=== PATIENT | male | born 1985 | race Caucasian/White ===

== ENCOUNTER 2017-03-25 05:56 | Emergency (ER) | payer MEDICAID ==
[2017-03-25 05:56] VITALS: BMI 30.4
[2017-03-25] MEDS ORDERED: Albuterol-Ipratrop 3 mg / 0.5 (3 ml) UD ONE ×2 (06:02→06:16)
[2017-03-25 06:06] VITALS: RESP 20; O2SAT 97
--- NOTE | 2017-03-25 06:10 | C.PDOC ---
History Of Present Illness pt presents with wheezing, worsening over a few days. speaking in complete sentences. no f/c/n/v Time Seen by Provider: 03/25/17 06:10 Chief Complaint (Nursing): Shortness Of Breath History Per: Patient History/Exam Limitations: no limitations Onset/Duration Of Symptoms: Days Current Symptoms Are (Timing): Still Present Initiating Event: Out Of Medications Exacerbating Factor(s): Coughing Current Respiratory Medications: See Home Med List Severity: Moderate Pain Scale Rating Of: 4 Associated Symptoms: denies: Fever, Chills, Sweating, Anxiety Reports Recently: Seen In ED, Treated By A Physician Recent travel outside of the [place]: No Additional History Per: Patient Past Medical History Reviewed: Historical Data, Nursing Documentation, Vital Signs Vital Signs: Last Vital Signs Temp 98 F 03/25/17 06:02 Pulse 94 H 03/25/17 06:02 Resp 20 03/25/17 06:02 BP 133/88 03/25/17 06:02 Pulse Ox 97 03/25/17 06:10 - Medical History PMH: Asthma Family History: States: No Known Family Hx - Social History Hx Alcohol Use: Yes Hx Substance Use: Yes Review Of Systems Constitutional: Negative for: Fever, Chills Eyes: Negative for: Redness ENT: Negative for: Throat Pain Cardiovascular: Negative for: Chest Pain Respiratory: Positive for: Shortness of Breath, Wheezing Gastrointestinal: Negative for: Nausea, Vomiting Genitourinary: Negative for: Hematuria Musculoskeletal: Negative for: Back Pain Skin: Negative for: Rash Neurological: Negative for: Weakness Psych: Negative for: Anxiety Physical Exam - Physical Exam Appears: Non-toxic, No Acute Distress Skin: Warm, Dry Head: Normacephalic Eye(s): bilateral: Normal Inspection Nose: No Flaring Oral Mucosa: Moist Neck: Supple Chest: Symmetrical Cardiovascular: Rhythm Regular Respiratory: No Accessory Muscle Use, No Rales, No Rhonchi, Wheezing Gastrointestinal/Abdominal: No Soft, No Tenderness, No Distention Back: No CVA Tenderness Male Genital: Normal Inspection Extremity: Bilateral: Atraumatic Neurological/Psych: Oriented x3, Normal Speech, Normal Cognition Gait: Steady ED Course And Treatment O2 Sat by Pulse Oximetry: 97 Pulse Ox Interpretation: Normal Medical Decision Making Medical Decision Making: Upon provider reevaluation patient is feeling better, is medically stable, and requires no further treatment in the ED at this time. Patient will be discharged home with Rx for albuterol, prednisone . Counseling was provided and all questions were answered regarding diagnosis and need for follow up with the referred clinic. There is agreement to discharge plan. Return if symptoms persist or worsen. Disposition Counseled Patient/Family Regarding: Studies Performed, Diagnosis, Need For Followup - Disposition Referrals: [facility] [Outside] [facility] [Outside] Disposition: HOME/ ROUTINE Disposition Time: 06:10 Condition: FAIR Additional Instructions: Please return if symptoms recur Prescriptions: Albuterol HFA [Ventolin HFA 90 mcg/actuation (8 g)] 2 puff IH [id number] #1 puff Albuterol 0.083% [Albuterol Sulfate 3 Ml] 3 ml IH QID PRN #50 neb PRN Reason: Wheezing Prednisone [Deltasone] 20 mg PO DAILY #5 tablet Instructions: Asthma (DC) - Clinical Impression Clinical Impression: Asthma exacerbation
[2017-03-25] MEDS ORDERED: Albuterol-Ipratrop 3 mg / 0.5 (3 ml) UD IH SCH (06:15)
[2017-03-25 06:32] VITALS: BP 129/78; PULSE 70; TEMP 97.2
== END 2017-03-25 06:25 | disposition home or self-care (01) ==
LOC: C.ER 05:56
DX: J45.901 Unspecified asthma with (acute) exacerbation (principal)

== ENCOUNTER 2017-03-30 23:58 | Emergency (ER) | payer MEDICAID ==
[2017-03-30 23:59] VITALS: BMI 30.4
--- NOTE | 2017-03-31 01:10 | C.PDOC ---
History Of Present Illness A 31 y/o M c/o pain to the right hand that punching something [employer]. Denies fever , chills, weakness, numbness, or any other complaints. Time Seen by Provider: 03/31/17 01:09 Chief Complaint (Nursing): Upper Extremity Problem/Injury History Per: Patient History/Exam Limitations: no limitations Onset/Duration Of Symptoms: Hrs Current Symptoms Are (Timing): Still Present Severity: Mild Recent travel outside of the [place]: No Additional History Per: Patient Past Medical History Reviewed: Historical Data, Nursing Documentation, Vital Signs Vital Signs: Last Vital Signs Temp 99.1 F 03/31/17 00:07 Pulse 142 H 03/31/17 00:07 Resp 20 03/31/17 00:07 BP 172/124 H 03/31/17 00:07 Pulse Ox 98 03/31/17 01:17 - Medical History PMH: Asthma Family History: States: Unknown Family Hx - Social History Hx Alcohol Use: Yes Hx Substance Use: No Review Of Systems Except As Marked, All Systems Reviewed And Found Negative. Constitutional: Negative for: Fever, Chills Musculoskeletal: Positive for: Hand Pain (Right hand pain) Neurological: Negative for: Weakness, Numbness Physical Exam - Physical Exam Appears: Non-toxic, No Acute Distress Skin: Warm, Dry Head: Atraumatic, Normacephalic Extremity: Normal ROM, Tenderness (Tenderness and bruising to the 5th metacarpal fo the right hand), Capillary Refill (<2secs) Extremity: Bilateral: Normal Color And Temperature Pulses: Left Radial: Normal, Right Radial: Normal Neurological/Psych: Oriented x3, Normal Speech, Normal Cognition, Normal Motor, Normal Sensation ED Course And Treatment O2 Sat by Pulse Oximetry: 98 (RA) Pulse Ox Interpretation: Normal Medical Decision Making Medical Decision Making: Impression: A 31 y/o M c/o pain to the right hand that punching something. Plans: -XRAY right hand Disposition - Disposition Disposition: AGAINST MEDICAL ADVICE Disposition Time: 01:15 Condition: STABLE - Clinical Impression Clinical Impression: Right hand pain - Scribe Statement The provider has reviewed the documentation as recorded by the Scribe Jonathan chisholm All medical record entries made by the Scribe were at my direction and personally dictated by me. I have reviewed the chart and agree that the record accurately reflects my personal performance of the history, physical exam, medical decision making, and the department course for this patient. I have also personally directed, reviewed, and agree with the discharge instructions and disposition.
[2017-03-31 12:21] VITALS: BP 172/124; PULSE 142; RESP 20; TEMP 99.1; O2SAT 98
== END 2017-03-31 01:19 | disposition left against medical advice (07) ==
LOC: C.ER 23:58
DX: M79.641 Pain in right hand (principal)

== ENCOUNTER 2017-07-09 02:58 | Emergency (ER) | payer MEDICAID ==
[2017-07-09 02:58] VITALS: BMI 27.0
[2017-07-09 03:04] VITALS: TEMP 99.3
--- NOTE | 2017-07-09 03:41 | C.PDOC ---
History Of Present Illness 32 year old male presents to the ED stating "I feel high and uneasy." Patient with history of substance abuse. He admits to taking 7 pills of ecstacy and smoking marijuana earlier this evening. He reports that he called his mother to pick him up. Per mother, patient was acting strange which prompted her to bring him here for evaluation. Patient denies alcohol or other drugs. No other acute physical complaints at this time. Time Seen by Provider: 07/09/17 03:11 Chief Complaint (Nursing): Substance Abuse History Per: Patient History/Exam Limitations: no limitations Modifying Factor(s): Marijuana, Other (ecstacy) Additional History Per: Family (Mother) Past Medical History Reviewed: Historical Data, Nursing Documentation, Vital Signs Vital Signs: Last Vital Signs Temp 99.3 F 07/09/17 04:53 Pulse 138 H 07/09/17 04:39 Resp 22 07/09/17 04:39 BP 158/95 H 07/09/17 04:39 Pulse Ox 97 07/09/17 04:56 - Medical History PMH: Asthma Denies: Diabetes, Hepatitis, HIV, HTN, Seizures, Sexually Transmitted Disease Family History: States: Unknown Family Hx, Hypertension - Social History Hx Alcohol Use: Yes Hx Substance Use: Yes - Immunization History Hx Tetanus Toxoid Vaccination: No Hx Influenza Vaccination: No Hx Pneumococcal Vaccination: No Review Of Systems Psych: Positive for: Other (Substance abuse, Denies alcohol abuse) Physical Exam - Physical Exam Appears: Non-toxic, No Acute Distress Skin: Normal Color, Warm, Dry, Other (No signs of trauma) Head: Atraumatic, Normacephalic Eye(s): bilateral: Normal Inspection, PERRL, EOMI Cardiovascular: Rhythm Regular (Tachycardic) Respiratory: Normal Breath Sounds, No Rales, No Rhonchi, No Wheezing Extremity: Bilateral: Atraumatic Neurological/Psych: Oriented x3, Normal Speech ED Course And Treatment O2 Sat by Pulse Oximetry: 97 Medical Decision Making Medical Decision Making: Impression: Substance abuse Plan: * IM Ativan Progress: Patient feels unchanged, clonidine ordered. Patient still feeling anxious and paranoid. Haldol ordered Patient wants to go home. 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 Disposition Counseled Patient/Family Regarding: Need For Followup - Disposition Disposition: HOME/ ROUTINE Disposition Time: 04:55 Condition: STABLE Instructions: Methamphetamine Abuse (ED) - POA Present On Arrival: None - Clinical Impression Clinical Impression: Paranoia, Polysubstance abuse - Scribe Statement The provider has reviewed the documentation as recorded by the Scribe John Jane
[2017-07-09 04:39] VITALS: RESP 22; O2SAT 97
[2017-07-09 04:41] VITALS: BP 158/95; PULSE 138
== END 2017-07-09 04:58 | disposition home or self-care (01) ==
LOC: C.ER 02:58
DX: F22 Delusional disorders (principal); F19.10 Other psychoactive substance abuse, uncomplicated
CPT/HCPCS: 96372; 99284; J1630; J2060

== ENCOUNTER 2017-07-31 22:50 | Emergency (ER) | payer MEDICAID ==
[2017-07-31 22:51] VITALS: BMI 31.9
[2017-07-31 22:58] VITALS: RESP 20
--- NOTE | 2017-07-31 23:39 | C.PDOC ---
History Of Present Illness 32 year old male presents to ED c/o anxiety and a panic attack, he states that he could not breath while it happened. Patient states drinking ETOH today and smoked PCP but according to him has not smoked in the last year. He states he was upset with his mother before he started drinking, denies any SI/HI at the time. Chief Complaint (Nursing): Anxiety History Per: Patient History/Exam Limitations: no limitations Onset/Duration Of Symptoms: Hrs Current Symptoms Are (Timing): Still Present Suicide/Self Injury Attempted (Context): None Modifying Factor(s): Alcohol Associated Symptoms: Anxiety, Agitation. denies: Suicidal Thoughts, Suicidal Plan Involuntary Hold By: None Recent travel outside of the [place]: No Additional History Per: Patient Past Medical History Reviewed: Historical Data, Nursing Documentation, Vital Signs Vital Signs: Last Vital Signs Temp 97.9 F 07/31/17 22:56 Pulse 78 08/01/17 03:45 Resp 20 08/01/17 03:45 BP 142/70 08/01/17 03:45 Pulse Ox 99 08/01/17 03:45 - Medical History PMH: Anxiety ( PER PATIENT), Asthma Denies: Diabetes, Hepatitis, HIV, HTN, Chronic Kidney Disease, Seizures, Sexually Transmitted Disease Surgical History: No Surg Hx Family History: States: Unknown Family Hx, Hypertension - Social History Hx Alcohol Use: Yes Hx Substance Use: Yes - Immunization History Hx Tetanus Toxoid Vaccination: No Hx Influenza Vaccination: Yes Hx Pneumococcal Vaccination: No Review Of Systems Constitutional: Negative for: Fever, Chills Cardiovascular: Negative for: Chest Pain, Palpitations Respiratory: Negative for: Cough, Shortness of Breath Gastrointestinal: Negative for: Nausea, Vomiting, Abdominal Pain Genitourinary: Negative for: Incontinence Skin: Negative for: Rash Neurological: Negative for: Weakness, Numbness Psych: Positive for: Anxiety. Negative for: Suicidal ideation Physical Exam - Physical Exam Appears: Non-toxic, No Acute Distress Skin: Normal Color, Warm, Dry Head: Atraumatic, Normacephalic Oral Mucosa: Moist Neck: Normal ROM, Supple Chest: Symmetrical, No Tenderness Cardiovascular: Rhythm Regular, No Murmur Respiratory: Normal Breath Sounds, No Accessory Muscle Use, No Rales, No Rhonchi , No Wheezing Gastrointestinal/Abdominal: Soft, No Tenderness Extremity: Normal ROM, No Pedal Edema, No Calf Tenderness, No Swelling Neurological/Psych: Oriented x3, Normal Speech, Normal Cognition Gait: Steady ED Course And Treatment - Laboratory Results Result Diagrams: 07/31/17 23:52 07/31/17 23:52 O2 Sat by Pulse Oximetry: 95 (On RA) Pulse Ox Interpretation: Normal Medical Decision Making Medical Decision Making: Impression: 32 y/o male with anxiety and paranoia Plan: * UA ordered * 1:1 ordered * Ativan 1 mg PO, Haldol 10 mg IM, and Xanax 0.25 mg PO given * Blood work ordered Patient was speaking in full sentences appeared to be clinically sober, showed no needle track max on his arms. Crisis was contacted to evaluate him and for his safety he was placed in a 1:1 observation. Disposition - Disposition Disposition: HOME/ ROUTINE Disposition Time: 05:22 Condition: GOOD Forms: [facility] (Divehi) - Clinical Impression Clinical Impression: Anxiety, Polysubstance (excluding opioids) dependence, daily use - Scribe Statement The provider has reviewed the documentation as recorded by the Scribe Adán Wooten All medical record entries made by the Scribe were at my direction and personally dictated by me. I have reviewed the chart and agree that the record accurately reflects my personal performance of the history, physical exam, medical decision making, and the department course for this patient. I have also personally directed, reviewed, and agree with the discharge instructions and disposition.
[2017-07-31 23:54] LABS: BASO # 0.2 K/uL (0.0-0.2); BASO % 1.1 % (0.0-2.0); EOS # 0.3 K/uL (0.0-0.7); HEMATOCRIT 45.6 % (35.0-51.0); LYMPH # 2.8 K/uL (1.0-4.3); LYMPH % 20.5 % (20.0-40.0); MEAN CORPUSCULAR HGB CONC 33.8 g/dL (33.0-37.0); MEAN PLATELET VOLUME 7.2 fL (7.2-11.7); MONO # 1.4 K/uL (0.0-0.8); MONO % 9.9 % (0.0-10.0); RED CELL DISTRIBUTION WIDTH 13.5 % (11.5-14.5); WHITE BLOOD COUNT 13.7 K/uL (4.8-10.8)
[2017-08-01 00:07] LABS: ALCOHOL SERUM < 10 mg/dl (0-10); ALKALINE PHOSPHATASE 71 U/L (38-126); ALT/SGPT 98 U/L (21-72); AST/SGOT 39 U/L (17-59); BLOOD UREA NITROGEN 12 mg/dL (9-20); CALCIUM 9.4 mg/dl (8.6-10.4); CARBON DIOXIDE 24 mmol/L (22-30); CHLORIDE 99 mmol/L (98-107); GFR AFRICAN-AMERICAN > 60; GLUCOSE,RANDOM 104 mg/dL (75-110); POTASSIUM 3.8 mmol/L (3.6-5.2); SODIUM 138 mmol/L (132-148)
[2017-08-01 00:09] LABS: ALB/GLOB RATIO 1.1 (1.0-2.1)
[2017-08-01 01:40] LABS: RBC URINE 9 /hpf (0-3); URINE BILIRUBIN NEGATIVE (NEGATIVE); URINE BLOOD NEGATIVE (NEGATIVE); URINE COLOR Amber (YELLOW); URINE GLUCOSE (UA) NORMAL (Normal); URINE KETONE TRACE mg/dL (NEGATIVE); URINE LEUKOCYTE ESTERASE NEG Leu/uL (Negative); URINE PROTEIN NEGATIVE (NEGATIVE); URINE UROBILINOGEN NORMAL mg/dL (0.2-1.0); WBC URINE 1 /hpf (0-5)
[2017-08-01 05:41] VITALS: BP 139/78; PULSE 81; TEMP 97.8; O2SAT 99
== END 2017-08-01 05:41 | disposition home or self-care (01) ==
LOC: C.ER 22:50
DX: F41.9 Anxiety disorder, unspecified (principal); F19.20 Other psychoactive substance dependence, uncomplicated
CPT/HCPCS: 36415; 80053; 80320; 80324; 80345; 80346; 80349; 80353; 80358; 80361; 81001; 83992; 85025; 96372; 99285; J1630

== ENCOUNTER 2017-08-15 15:49 | Emergency (ER) | payer MEDICAID ==
[2017-08-15 15:49] VITALS: BMI 31.9
[2017-08-15 17:01] LABS: BASO # 0.2 K/uL (0.0-0.2); EOS # 0.1 K/uL (0.0-0.7); EOS % 0.9 % (0.0-4.0); HEMATOCRIT 45.4 % (35.0-51.0); LYMPH # 2.4 K/uL (1.0-4.3); LYMPH % 13.9 % (20.0-40.0); MEAN CELL VOLUME 85.3 fL (80.0-94.0); MEAN CORPUSCULAR HEMOGLOBIN 28.4 pg (27.0-31.0); MEAN CORPUSCULAR HGB CONC 33.3 g/dL (33.0-37.0); MEAN PLATELET VOLUME 7.1 fL (7.2-11.7); MONO % 5.6 % (0.0-10.0); RED CELL DISTRIBUTION WIDTH 13.7 % (11.5-14.5); WHITE BLOOD COUNT 17.3 K/uL (4.8-10.8)
[2017-08-15 17:28] LABS: ALB/GLOB RATIO 1.2 (1.0-2.1); ALCOHOL SERUM < 10 mg/dl (0-10); ALKALINE PHOSPHATASE 63 U/L (38-126); ALT/SGPT 137 U/L (21-72); AST/SGOT 68 U/L (17-59); BILIRUBIN,TOTAL 0.6 mg/dL (0.2-1.3); BLOOD UREA NITROGEN 11 mg/dL (9-20); CALCIUM 8.8 mg/dl (8.6-10.4); CARBON DIOXIDE 25 mmol/L (22-30); CHLORIDE 97 mmol/L (98-107); GFR AFRICAN-AMERICAN > 60; GLUCOSE,RANDOM 89 mg/dL (75-110); POTASSIUM 4.2 mmol/L (3.6-5.2); SODIUM 135 mmol/L (132-148); TOTAL PROTEIN 8.8 g/dL (6.3-8.3)
--- NOTE | 2017-08-15 17:31 | C.PDOC ---
History Of Present Illness 32 y/o male, with history of polysubstance abuse, is brought to ED by father for evaluation. As per father, pt appeared to be paranoid and agitated after taking 5 ecstasy pills today. Pt has been seen at multiple local hospital for similar. Pt has consistently declined psych inpatient evaluation and detox. Denies any physical complaints at this time. Time Seen by Provider: 08/15/17 16:32 Chief Complaint (Nursing): Substance Abuse History Per: Patient History/Exam Limitations: no limitations Onset/Duration Of Symptoms: Days Current Symptoms Are (Timing): Still Present Suicide/Self Injury Attempted (Context): None Severity: None Pain Scale Rating Of: 0 Associated Symptoms: denies: Suicidal Thoughts, Suicidal Plan Involuntary Hold By: None Recent travel outside of the [place]: No Additional History Per: Patient Past Medical History Reviewed: Historical Data, Nursing Documentation, Vital Signs Vital Signs: Last Vital Signs Temp 98.9 F 08/15/17 16:00 Pulse 155 H 08/15/17 18:24 Resp 18 08/15/17 18:24 BP 167/95 H 08/15/17 18:24 Pulse Ox 95 08/15/17 18:24 - Medical History PMH: Anxiety ( PER PATIENT), Asthma Denies: Diabetes, Hepatitis, HIV, HTN, Chronic Kidney Disease, Seizures, Sexually Transmitted Disease Family History: States: Unknown Family Hx, Hypertension - Social History Hx Alcohol Use: Yes Hx Substance Use: Yes - Immunization History Hx Tetanus Toxoid Vaccination: No Hx Influenza Vaccination: No Hx Pneumococcal Vaccination: No Review Of Systems Except As Marked, All Systems Reviewed And Found Negative. Constitutional: Negative for: Fever, Chills Cardiovascular: Negative for: Chest Pain, Palpitations Respiratory: Negative for: Shortness of Breath Gastrointestinal: Negative for: Nausea, Vomiting, Abdominal Pain Psych: Positive for: Other (paranoid) Physical Exam - Physical Exam Appears: Non-toxic, No Acute Distress, Agitated (paranoid), Other (obese) Skin: Normal Color, Warm, Dry Head: Atraumatic, Normacephalic Eye(s): bilateral: Abnormal Pupil (dilated pupils) Oral Mucosa: Moist Chest: Symmetrical Cardiovascular: Rhythm Regular, No Murmur Respiratory: Normal Breath Sounds, No Rales, No Rhonchi, No Wheezing Gastrointestinal/Abdominal: Soft, No Tenderness Extremity: Normal ROM Neurological/Psych: Oriented x3, Normal Speech ED Course And Treatment - Laboratory Results Result Diagrams: 08/15/17 16:56 08/15/17 16:56 Lab Interpretation: Abnormal ECG: Interpreted By Me ECG Rhythm: Sinus Tachycardia ECG Interpretation: Abnormal Rate From EC O2 Sat by Pulse Oximetry: 97 Pulse Ox Interpretation: Normal Progress Note: ernesto rodgers IVF Reevaluation Time: 18:51 Reassessment Condition: Improved Medical Decision Making Medical Decision Making: persistent substance abuse Consider Ecstacy/MDMA intoxication. Disposition - Disposition Disposition Time: 19:00 Condition: GOOD Forms: [facility] (Romanian) - Clinical Impression Clinical Impression: Anxiety, Polysubstance (excluding opioids) dependence, daily use - Scribe Statement The provider has reviewed the documentation as recorded by the Scribe Chaim Knight All medical record entries made by the Scribe were at my direction and personally dictated by me. I have reviewed the chart and agree that the record accurately reflects my personal performance of the history, physical exam, medical decision making, and the department course for this patient. I have also personally directed, reviewed, and agree with the discharge instructions and disposition. Physician Patient Turnover Patient Signed Over To: Lena Bean Handoff Comments: re-eval when labs return and dispo per Crisis eval.
[2017-08-15 18:25] VITALS: RESP 18
[2017-08-15 18:53] VITALS: O2SAT 97
[2017-08-15 19:48] LABS: RBC URINE 4 /hpf (0-3); URINE BACTERIA FEW (<OCC); URINE BILIRUBIN NEGATIVE (NEGATIVE); URINE COLOR Yellow (YELLOW); URINE GLUCOSE (UA) NORMAL (Normal); URINE KETONE NEGATIVE (NEGATIVE); URINE LEUKOCYTE ESTERASE NEG Leu/uL (Negative); URINE PROTEIN NEGATIVE (NEGATIVE); URINE UROBILINOGEN NORMAL mg/dL (0.2-1.0); WBC URINE 1 /hpf (0-5)
[2017-08-15] MEDS ORDERED: Sodium Chloride 0.9% 1,000 ML IV ONE (19:48)
[2017-08-15 19:51] LABS: URINE BLOOD 1+ (NEGATIVE)
[2017-08-15 21:33] VITALS: BP 146/86; PULSE 115; TEMP 98.7
--- NOTE | 2017-08-16 21:50 | CARD ---
APPROVED REPORT EKG Measurement Heart [id number] <Conclusion> Sinus tachycardia Possible Left atrial enlargement Borderline ECG
== END 2017-08-15 21:34 | disposition home or self-care (01) ==
LOC: C.ER 15:49
DX: F41.9 Anxiety disorder, unspecified (principal); F19.20 Other psychoactive substance dependence, uncomplicated
CPT/HCPCS: 80053; 80320; 80324; 80329; 80345; 80346; 80349; 80353; 80358; 80361; 81001; 83992; 85025; 93005; 96361; 96372; 96374; 99285; J2060; J3486; J7040

== ENCOUNTER 2017-08-21 16:50 | Emergency (ER) | payer MEDICAID ==
[2017-08-21 16:51] VITALS: BMI 31.0
[2017-08-21] MEDS ORDERED: Sodium Chloride 0.9% 1,000 ML IV ONE (17:04)
[2017-08-21 17:19] LABS: BASO # 0.2 K/uL (0.0-0.2); EOS # 0.2 K/uL (0.0-0.7); EOS % 0.9 % (0.0-4.0); HEMATOCRIT 45.3 % (35.0-51.0); LYMPH # 2.5 K/uL (1.0-4.3); LYMPH % 13.7 % (20.0-40.0); MEAN CELL VOLUME 85.5 fL (80.0-94.0); MEAN CORPUSCULAR HEMOGLOBIN 28.2 pg (27.0-31.0); MEAN PLATELET VOLUME 7.5 fL (7.2-11.7); MONO % 5.3 % (0.0-10.0); RED CELL DISTRIBUTION WIDTH 14.2 % (11.5-14.5); WHITE BLOOD COUNT 18.5 K/uL (4.8-10.8)
[2017-08-21 17:38] LABS: ALB/GLOB RATIO 1.5 (1.0-2.1); ALCOHOL SERUM < 10 mg/dl (0-10); ALKALINE PHOSPHATASE 59 U/L (38-126); ALT/SGPT 97 U/L (21-72); AST/SGOT 62 U/L (17-59); BILIRUBIN,TOTAL 0.6 mg/dL (0.2-1.3); BLOOD UREA NITROGEN 15 mg/dL (9-20); CALCIUM 9.7 mg/dl (8.6-10.4); CARBON DIOXIDE 22 mmol/L (22-30); CHLORIDE 98 mmol/L (98-107); GFR AFRICAN-AMERICAN > 60; GLUCOSE,RANDOM 138 mg/dL (75-110); POTASSIUM 4.6 mmol/L (3.6-5.2); SODIUM 140 mmol/L (132-148); TOTAL PROTEIN 8.3 g/dL (6.3-8.3)
--- NOTE | 2017-08-21 17:42 | C.PDOC ---
History Of Present Illness 32 y/o male presents to ED with complaints of palpitations and heart racing. Upon arrival immediate assistance was require for patient. Patient admits to taking 4 ecstasy pills today, state he normally takes 2 but has an addiction. Patient also reports taking Klonopin and denies nausea, vomiting, sob, chest pain or any other complaints at this time. Time Seen by Provider: 08/21/17 16:56 Chief Complaint (Nursing): Substance Abuse History Per: Patient History/Exam Limitations: no limitations Onset/Duration Of Symptoms: Hrs Current Symptoms Are (Timing): Still Present Suicide/Self Injury Attempted (Context): None Past Medical History Reviewed: Historical Data, Nursing Documentation, Vital Signs Vital Signs: Last Vital Signs Temp Pulse 102 H 08/21/17 21:33 Resp 18 08/21/17 21:33 BP 133/70 08/21/17 21:33 Pulse Ox 100 08/21/17 21:33 - Medical History PMH: Anxiety ( PER PATIENT), Asthma Surgical History: No Surg Hx Family History: States: Hypertension - Social History Hx Alcohol Use: Yes Hx Substance Use: Yes - Immunization History Hx Tetanus Toxoid Vaccination: No Hx Influenza Vaccination: No Hx Pneumococcal Vaccination: No Review Of Systems Constitutional: Negative for: Fever, Chills Cardiovascular: Positive for: Palpitations. Negative for: Chest Pain Respiratory: Negative for: Cough, Shortness of Breath Gastrointestinal: Negative for: Nausea, Vomiting Skin: Negative for: Rash Neurological: Negative for: Weakness, Numbness Physical Exam - Physical Exam Appears: Non-toxic, No Acute Distress, Other (Anxious appearing) Skin: Normal Color, Warm, Dry, No Rash Head: Atraumatic, Normacephalic Eye(s): bilateral: Normal Inspection Oral Mucosa: Moist Neck: Normal ROM, Supple Chest: Symmetrical Cardiovascular: Rhythm Regular, Other (Tachycardic) Respiratory: Normal Breath Sounds, No Rales, No Rhonchi, No Wheezing Gastrointestinal/Abdominal: Soft, No Tenderness, No Guarding, No Rebound Extremity: Normal ROM, No Pedal Edema Neurological/Psych: Oriented x3 ED Course And Treatment - Laboratory Results Result Diagrams: 08/21/17 17:15 08/21/17 17:15 ECG: Interpreted By Me, Viewed By Me ECG Rhythm: Sinus Tachycardia Interpretation Of ECG: Normal intervals, Normal access, No ST/T wave changes Rate From EC (bpm) O2 Sat by Pulse Oximetry: 100 (ra) Pulse Ox Interpretation: Normal - Radiology CXR: Interpreted by Me, Viewed By Me CXR Interpretation: Yes: No Acute Disease. No: Fracture, Cardiomegaly, Pnemothorax Medical Decision Making Medical Decision Making: Assessment: Palpitations and Chest pain secondary to Drug use Repeat EC Sinus Tachycardia 0 -repeat heart 102 bpm 2133: Patient evaluated by Crisis and medically cleared 0 - patient cleared by crisis for discharge home 0 - patient resting comfortably, no complaints will discharge home. counseled patient on substance abuse and need to stop using drugs. Disposition Counseled Patient/Family Regarding: Diagnosis, Need For Followup - Disposition Disposition: HOME/ ROUTINE Disposition Time: 22:25 Condition: IMPROVED Additional Instructions: stop using drugs follow up with outpatient facility as discussed tomorrow return to hospital if symptoms worsens or progress Instructions: Polysubstance Abuse (ED) Forms: [facility] (Kazakh), General Discharge Instructions - Clinical Impression Clinical Impression: Drug abuse - Scribe Statement The provider has reviewed the documentation as recorded by the Karolineibtiffany Shaikh All medical record entries made by the Karolineibtiffany were at my direction and personally dictated by me. I have reviewed the chart and agree that the record accurately reflects my personal performance of the history, physical exam, medical decision making, and the department course for this patient. I have also personally directed, reviewed, and agree with the discharge instructions and disposition.
[2017-08-21 18:05] LABS: THYROID STIMULATING HORMONE 1.14 mIU/L (0.46-4.68)
[2017-08-21 20:07] VITALS: RESP 18
[2017-08-21 20:18] LABS: RBC URINE 4 /hpf (0-3); URINE BACTERIA RARE (<OCC); URINE BILIRUBIN NEGATIVE (NEGATIVE); URINE BLOOD NEGATIVE (NEGATIVE); URINE COLOR Yellow (YELLOW); URINE GLUCOSE (UA) NORMAL (Normal); URINE KETONE NEGATIVE (NEGATIVE); URINE LEUKOCYTE ESTERASE NEG Leu/uL (Negative); URINE PROTEIN NEGATIVE (NEGATIVE); URINE UROBILINOGEN NORMAL mg/dL (0.2-1.0); WBC URINE < 1 /hpf (0-5)
[2017-08-21 21:34] VITALS: BP 133/70; PULSE 102; O2SAT 100
--- NOTE | 2017-08-22 08:03 | RAD ---
PROCEDURE: CHEST RADIOGRAPH, 1 VIEW HISTORY: chest pain COMPARISON: Frontal chest radiograph 09/19/2009. FINDINGS: LUNGS: No acute infiltrate identified bilaterally. PLEURA: No pneumothorax or pleural fluid seen. CARDIOVASCULAR: Cardiac silhouette is likely stable but an element of intrinsic enlargement or more likely, technical magnification is identified. No pulmonary vascular derangement. OSSEOUS STRUCTURES: No significant abnormalities. VISUALIZED UPPER ABDOMEN: Normal. OTHER FINDINGS: None. IMPRESSION: No acute infiltrate or pleural effusion bilaterally. No pneumothorax. Prominent cardiac silhouette is encounter which may be a function of technique. Clinically correlate.
== END 2017-08-21 22:39 | disposition home or self-care (01) ==
LOC: C.ER 16:50
DX: F19.10 Other psychoactive substance abuse, uncomplicated (principal)
CPT/HCPCS: 71010; 80053; 80320; 80324; 80329; 80345; 80346; 80349; 80353; 80358; 80361; 81001; 82550; 83880; 83992; 84443; 84484; 85025; 96361; 96372; 96374; 99285; J1630; J2060; J7040

== ENCOUNTER 2018-02-25 00:43 | Emergency (ER) | payer MEDICAID ==
[2018-02-25 00:43] VITALS: BMI 31.0
--- NOTE | 2018-02-25 01:15 | C.PDOC ---
History Of Present Illness 32 year old male brought in by parent for drug abuse. Chief Complaint (Nursing): Psychiatric Evaluation History Per: Family History/Exam Limitations: no limitations Onset/Duration Of Symptoms: Hrs Current Symptoms Are (Timing): Still Present Suicide/Self Injury Attempted (Context): None Modifying Factor(s): Other (Drugs) Associated Symptoms: Anxiety, Agitation Involuntary Hold By: None Recent travel outside of the [place]: No Past Medical History Reviewed: Historical Data, Nursing Documentation, Vital Signs Vital Signs: Last Vital Signs Temp 98.0 F 02/25/18 04:45 Pulse 108 H 02/25/18 04:45 Resp 24 02/25/18 04:45 BP 118/72 02/25/18 04:45 Pulse Ox 96 02/25/18 05:20 - Medical History PMH: Anxiety ( PER PATIENT), Asthma Family History: States: Hypertension - Social History Hx Alcohol Use: No Hx Substance Use: Yes - Immunization History Hx Tetanus Toxoid Vaccination: No Hx Influenza Vaccination: No Hx Pneumococcal Vaccination: No Review Of Systems Constitutional: Negative for: Fever, Chills Cardiovascular: Negative for: Chest Pain, Palpitations Respiratory: Negative for: Cough Gastrointestinal: Negative for: Nausea, Vomiting Psych: Positive for: Anxiety, Other (Agitated) Physical Exam - Physical Exam Appears: Agitated, Other (Anxious) Skin: Normal Color, Warm, Dry Head: Atraumatic, Normacephalic Eye(s): bilateral: Normal Inspection Chest: Symmetrical, No Tenderness Cardiovascular: Rhythm Regular (Tachycardic) Respiratory: Normal Breath Sounds, No Rales, No Rhonchi, No Wheezing Gastrointestinal/Abdominal: Soft, No Tenderness Extremity: Normal ROM (x4) Neurological/Psych: Oriented x3, Normal Speech ED Course And Treatment - Laboratory Results Result Diagrams: 02/25/18 04:41 02/25/18 04:41 ECG: Interpreted By Me, Viewed By Me ECG Rhythm: Sinus Tachycardia ECG Interpretation: Normal, No Acute Changes Interpretation Of ECG: Sinus tachycardia, normal tracings Rate From EC O2 Sat by Pulse Oximetry: 96 (Room air) Pulse Ox Interpretation: Normal Progress Note: Blood work and urinalysis ordered. On reevaluation, patient is alert, conscious, and cooperative. Mother is comfortable going home, states patient is seeing a therapist regularly for his drug abuse. Disposition Counseled Patient/Family Regarding: Diagnosis - Disposition Referrals: [facility] [Outside] Disposition: HOME/ ROUTINE Disposition Time: 05:16 Condition: STABLE Instructions: Drug Abuse and Drug Addiction (DC), Amphetamine, Polysubstance Abuse (DC) Forms: [facility] (Kazakh) - POA Present On Arrival: None - Clinical Impression Clinical Impression: Substance abuse, Amphetamine abuse - Scribe Statement The provider has reviewed the documentation as recorded by the Scribe Hong Lind All medical record entries made by the Karolineibtiffany were at my direction and personally dictated by me. I have reviewed the chart and agree that the record accurately reflects my personal performance of the history, physical exam, medical decision making, and the department course for this patient. I have also personally directed, reviewed, and agree with the discharge instructions and disposition.
[2018-02-25] MEDS ORDERED: Sodium Chloride 0.9% 1,000 ML IV ONE ×2 (01:51→03:15)
[2018-02-25] MEDS ORDERED: Sodium Chloride 0.9% 500 ML IV ONE (01:51)
[2018-02-25 02:03] LABS: BASO # 0.1 K/uL (0.0-0.2); BASO % 0.5 % (0.0-2.0); EOS # 0.1 K/uL (0.0-0.7); EOS % 0.4 % (0.0-4.0); HEMOGLOBIN 15.1 g/dL (12.0-18.0); LYMPH # 2.5 K/uL (1.0-4.3); LYMPH % 11.7 % (20.0-40.0); MEAN CELL VOLUME 87.3 fL (80.0-94.0); MEAN CORPUSCULAR HGB CONC 33.3 g/dL (33.0-37.0); MONO # 1.9 K/uL (0.0-0.8); MONO % 9.2 % (0.0-10.0); NEUT # 16.4 K/uL (1.8-7.0); NEUT % 78.2 % (50.0-75.0); RBC 5.19 Mil/uL (4.40-5.90); RED CELL DISTRIBUTION WIDTH 13.9 % (11.5-14.5)
[2018-02-25 02:25] LABS: ALB/GLOB RATIO 1.2 (1.0-2.1); ALBUMIN 5.2 g/dL (3.5-5.0); ALT/SGPT 23 U/L (21-72); BLOOD UREA NITROGEN 9 mg/dL (9-20); CALCIUM 10.5 mg/dl (8.6-10.4); GFR AFRICAN-AMERICAN > 60; GFR NON-AFRICAN AMERICAN > 60
[2018-02-25 02:39] LABS: AST/SGOT 48 U/L (17-59)
[2018-02-25 02:50] VITALS: PULSE 108
[2018-02-25 02:58] LABS: ARTERIAL BLOOD GAS HCO3 21.1 mmol/L (21-28); ARTERIAL BLOOD GAS O2 SAT 97.3 % (95-98); ARTERIAL BLOOD GAS PCO2 35 mm/Hg (35-45); ARTERIAL BLOOD GAS PH 7.36 (7.35-7.45); ARTERIAL BLOOD GAS PO2 89 mm/Hg (80-100); ARTERIAL BLOOD GAS TCO2 20.9 mmol/L (22-28)
[2018-02-25 04:58] LABS: ALB/GLOB RATIO 1.3 (1.0-2.1); ALBUMIN 3.9 g/dL (3.5-5.0); ALT/SGPT 36 U/L (21-72); AST/SGOT 44 U/L (17-59); BLOOD UREA NITROGEN 10 mg/dL (9-20); CALCIUM 8.5 mg/dl (8.6-10.4); GFR AFRICAN-AMERICAN > 60; GFR NON-AFRICAN AMERICAN > 60
[2018-02-25 05:06] VITALS: BP 118/72; RESP 24; TEMP 98
[2018-02-25 05:07] LABS: BASO % 0.2 % (0.0-2.0); EOS % 0.1 % (0.0-4.0); HEMOGLOBIN 12.6 g/dL (12.0-18.0); LYMPH # 1.8 K/uL (1.0-4.3); LYMPH % 8.1 % (20.0-40.0); MEAN CELL VOLUME 86.7 fL (80.0-94.0); MEAN CORPUSCULAR HEMOGLOBIN 28.7 pg (27.0-31.0); MEAN CORPUSCULAR HGB CONC 33.2 g/dL (33.0-37.0); MONO # 1.8 K/uL (0.0-0.8); MONO % 8.3 % (0.0-10.0); NEUT # 18.1 K/uL (1.8-7.0); NEUT % 83.3 % (50.0-75.0); PLATELET COUNT 333 K/uL (130-400); RBC 4.37 Mil/uL (4.40-5.90); RED CELL DISTRIBUTION WIDTH 13.8 % (11.5-14.5); WHITE BLOOD COUNT 21.7 K/uL (4.8-10.8)
[2018-02-25 05:21] VITALS: O2SAT 96
[2018-02-25 05:35] LABS: GRANULAR CAST 5 /lpf (0-1); SPERM URINE RARE /hpf; SQUAMOUS EPITHIAL < 1 /hpf (0-5); URINE BACTERIA RARE (<OCC); URINE BILIRUBIN NEGATIVE (NEGATIVE); URINE BLOOD 3+ (NEGATIVE); URINE CLARITY Hazy (Clear); URINE COLOR Yellow (YELLOW); URINE GLUCOSE (UA) NORMAL (Normal); URINE LEUKOCYTE ESTERASE NEG Leu/uL (Negative); URINE PROTEIN 1+ mg/dL (NEGATIVE); URINE UROBILINOGEN NORMAL mg/dL (0.2-1.0)
[2018-02-25 05:46] LABS: BARBITURATES, UR NEGATIVE (NEGATIVE); OPIATES, UR NEGATIVE (NEGATIVE); PHENCYCLIDINE, UR NEGATIVE (NEGATIVE)
[2018-02-25 05:58] LABS: LYMPHOCYTE 6 % (20-40); MONOCYTE 6 % (0-10); NEUTROPHIL 88 % (50-75); PLATELET ESTIMATE NORMAL (NORMAL); TOTAL CELLS COUNTED 100; TOXIC GRANULATION PRESENT
[2018-02-25 06:22] LABS: BENZODIAZEPINES, UR POSITIVE (NEGATIVE)
--- NOTE | 2018-02-28 12:28 | CARD ---
APPROVED REPORT EKG Measurement Heart [id number] MD [id number] <Conclusion> Sinus tachycardia Otherwise normal ECG
== END 2018-02-25 04:45 | disposition home or self-care (01) ==
LOC: C.ER 00:43
DX: F15.10 Other stimulant abuse, uncomplicated (principal)
CPT/HCPCS: 36600; 80053; 80320; 80324; 80345; 80346; 80349; 80353; 80358; 80361; 81001; 82550; 82803; 83992; 84484; 85025; 96372; 96374; 99285; J1630; J2060; J7030; J7040